=== PATIENT | female | born 1950 | race Caucasian/White ===

== ENCOUNTER 2020-07-22 09:52 | Day surgery (SDC) | payer MEDICARE, BC ==
[~2020-07-22] VITALS: Ht 175.3 cm; Wt 103.6 kg
[2020-07-22] MEDS ORDERED: FUROSEMIDE20 MG PO (09:57)
[2020-07-22] MEDS ORDERED: ELIQUIS5 MG PO (09:58)
[2020-07-22] MEDS ORDERED: METOPROLOL TART50 MG PO (09:58)
[2020-07-22 10:38] LABS: HEMATOCRIT 40.5 % (36.0-48.0); HEMOGLOBIN 13.8 g/dL (12-16); MCH 31.9 pg (26.0-34.0); MCHC 34.1 g/dL (31.0-37.0); MCV 93.8 fL (80.0-100.0); MEAN PLATELET VOLUME 10.6 fL (7.4-10.4); RBC 4.32 10x6/uL (4.00-5.40); RDW 13.3 % (11.5-14.5); WBC 4.8 10x3/uL (4.8-10.8)
[2020-07-22 10:46] LABS: ANION GAP 11.5 mmol/L (8-16); CALCIUM 9.5 mg/dL (8.5-10.1); CARBON DIOXIDE 28.5 mmol/L (21.0-32.0); CREATININE - SERUM 1.1 mg/dL (0.6-1.3)
[2020-07-22 10:47] LABS: APTT 28.5 SECONDS (22.8-39.4); INR 1.15 (0.85-1.17); PROTIME 13.6 SECONDS (11.6-15.0)
[2020-07-22 10:54] VITALS: Ht 175.3 cm; Wt 103.6 kg
[2020-07-22] MEDS ORDERED: BENICAR20 MG PO (11:00)
[2020-07-22] MEDS ORDERED: VITAMIN D325 MC1 PO (11:01)
[2020-07-22] MEDS ORDERED: BENICAR HCT 201 EAC1 PO (11:01)
--- NOTE | 2020-07-22 13:45 | NUR ---
DISCHARGE INSTRUCTIONS REVIEWED WITH PATIENT AND COPY PROVIDED ALONG WITH HIGH FIBER DIET AND NSAIDS TO AVOID. PT INSTRUCTED TO RESTART ELIQUIS TOMORROW. PT VOICED UNDERSTANDING OF ALL. IV DC'D WITH CATH TIP INTACT. PT GETTING DRESSED.
--- NOTE | 2020-07-22 13:54 | NUR ---
DISCHARGED VIA W/C, ACCOMPANIED BY THIS NURSE, TO POV WITH SPOUSE DRIVING. ALL BELONGINGS AND DC PACKET WITH PATIENT.
--- NOTE | 2020-07-23 14:44 | OP ---
PATIENT NAME: JOSHUA LAURENT MEDICAL RECORD: [id number] :48 LOCATION:D.OPS ADMISSION DATE: SURGEON: PENNY WALKER MD DATE OF OPERATION: 07/22/2020 PREOPERATIVE DIAGNOSIS: History of polyps. MEDICATION: Propofol per anesthesia. Colonoscopy was performed. The patient was made comfortable in the left lateral position. The colonoscope was inserted through the rectum and advanced to the cecum, identified by the ileocecal valve and the appendiceal orifice. The quality of the prep was good. There were a few sigmoid diverticula visualized. In the ascending colon and sigmoid colon were 2 small polyps. These were removed with cold biopsy forceps. The remainder of the exam was normal. The patient tolerated the procedure well. FINAL DIAGNOSES: 1. Multiple sigmoid diverticula. 2. Ascending colon polyp removed with cold biopsy forceps. 3. Sigmoid polyp removed with cold biopsy forceps. PLAN: Check histology results. Advance diet. Return to GI office. Repeat colonoscopy in 3 years given history of polyps. TRANSINT:[id number] Voice Confirmation ID: [id number] DOCUMENT ID: [id number] PENNY WALKER MD at 1444 CC: [id number] DICTATION DATE: 07/22/20 1307 [employer] HR GENERALIST: 07/22/201 [facility] 07/22/20 [id number] [place] [id number]
== END 2020-07-22 13:54 | disposition home or self-care (01) ==
LOC: D.OPS 09:52
PROVIDERS: Anesthesiology; ATTEND Internal Medicine Gastroenterology
DX: Z86.010 Personal history of colon polyps (principal); K63.5 Polyp of colon; K57.30 Diverticulosis of large intestine without perforation or abscess without bleeding; Z12.11 Encounter for screening for malignant neoplasm of colon; K64.0 First degree hemorrhoids